=== PATIENT | female | born 1980 | race American Indian/Alaskan Native ===

== ENCOUNTER 2020-10-26 06:13 | Emergency (ER) | payer BC ==
[2020-10-26 06:31] VITALS: BP 143/85
[2020-10-26] MEDS ORDERED: ACETAMINOPHEN 500 MG TAB PO ONE (06:32)
[2020-10-26 07:22] LABS: Basophils # (Auto) 0.2 K/mm3 (0.0-0.1); Basophils % (Auto) 2.2 % (0.0-1.8); Eosinophils # (Auto) 0.1 K/mm3 (0.0-0.4); Eosinophils % (Auto) 1.3 % (0.0-4.3); Hematocrit 37.6 % (30.3-42.9); Hemoglobin 12.5 gm/dl (10.1-14.3); Lymphocytes % (Auto) 22.2 % (13.4-35.0); Mean Corpuscular HGB Conc 33 % (30-34); Mean Corpuscular Volume 83 fl (79-97); Monocytes # (Auto) 0.6 K/mm3 (0.0-0.8); Monocytes % (Auto) 6.3 % (0.0-7.3); Platelet Count 425 K/mm3 (140-440); Red Blood Count 4.54 M/mm3 (3.65-5.03); Red Cell Distribution Width 17.8 % (13.2-15.2)
[2020-10-26] MEDS ORDERED: ACETAMINOPHEN 325 MG TAB PO ONE (07:35)
[2020-10-26] MEDS ORDERED: SODIUM CHLORIDE 0.9% 1000 ML 1,000 ML IV ONE (07:35)
--- NOTE | 2020-10-26 07:35 | Emergency Department Report ---
ED General Adult HPI - General Chief complaint: Vaginal Bleeding Stated complaint: MISCARRIAGE Time Seen by Provider: 10/26/20 07:24 Source: patient Mode of arrival: Ambulatory Limitations: No Limitations - History of Present Illness Initial comments: Patient is a 39-year-old, approximately 9-week , female who presents emergency department for evaluation of vaginal bleeding which began briskly this morning and evolved into clots while in the waiting area of emergency department. Patient believes she miscarried, not complaining of moderate c onstant crampy suprapubic pain. Severity scale (0 -10): 7 - Related Data Allergies Allergy/AdvReac Type Severity Reaction Status Date / Time Sulfa (Sulfonamide Allergy Unknown Verified 10/26/20 07:37 Antibiotics) ED Review of Systems ROS: Stated complaint: MISCARRIAGE Other details as noted in HPI Constitutional: denies: chills, fever Eyes: denies: eye pain, eye discharge, vision change ENT: denies: ear pain, throat pain Respiratory: denies: cough, shortness of breath, wheezing Cardiovascular: denies: chest pain, palpitations Endocrine: no symptoms reported Gastrointestinal: denies: abdominal pain, nausea, diarrhea Genitourinary: denies: urgency, dysuria, discharge Musculoskeletal: denies: back pain, joint swelling, arthralgia Skin: denies: rash, lesions Neurological: denies: headache, weakness, paresthesias Psychiatric: denies: anxiety, depression Hematological/Lymphatic: denies: easy bleeding, easy bruising ED Past Medical Hx - Past Medical History Previous Medical History?: No Additional medical history: Oophorectomy - Social History Smoking Status: Never Smoker Substance Use Type: None ED Physical Exam - General Limitations: No Limitations General appearance: alert, in no apparent distress - Head Head exam: Present: atraumatic, normocephalic - Eye Eye exam: Present: normal appearance - ENT ENT exam: Present: mucous membranes moist - Neck Neck exam: Present: normal inspection - Respiratory Respiratory exam: Present: normal lung sounds bilaterally. Absent: respiratory distress - Cardiovascular Cardiovascular Exam: Present: normal rhythm, tachycardia. Absent: systolic murmur, diastolic murmur, rubs, gallop - GI/Abdominal GI/Abdominal exam: Present: soft, normal bowel sounds - Extremities Exam Extremities exam: Present: normal inspection - Back Exam Back exam: Present: normal inspection - Neurological Exam Neurological exam: Present: alert, oriented X3 - Psychiatric Psychiatric exam: Present: normal affect, normal mood - Skin Skin exam: Present: warm, dry, intact, normal color. Absent: rash ED Course Vital Signs 10/26/20 06:19 Temperature 98.2 F Pulse Rate 110 H Respiratory 14 Rate Blood Pressure 143/85 O2 Sat by Pulse 100 Oximetry - Reevaluation(s) Reevaluation #1: 10/26/20 07:34 Patient initially treated with IV normal saline 1 L x 1 and Tylenol 650 mg p.o. x1. Reevaluation #2: 10/26/20 08:49 Patient reevaluated and in no acute distress, abdomen soft nontender, tachycardia has resolved with IV NS. ED Medical Decision Making - Lab Data Result diagrams: 10/26/20 07:02 10/26/20 07:02 Labs 10/26/20 10/26/20 10/26/20 07:02 07:02 07:02 WBC 9.1 RBC 4.54 Hgb 12.5 Hct 37.6 MCV 83 MCH 28 MCHC 33 RDW 17.8 H Plt Count 425 Lymph % (Auto) 22.2 [place] % (Auto) 6.3 Eos % (Auto) 1.3 Baso % (Auto) 2.2 H Lymph # (Auto) 2.0 [place] # (Auto) 0.6 Eos # (Auto) 0.1 Baso # (Auto) 0.2 H Seg Neutrophils % 68.0 Seg Neutrophils # 6.2 Sodium 136 L Potassium 3.9 Chloride 100.1 Carbon Dioxide 27 Anion Gap 13 BUN 6 L Creatinine 0.8 Estimated GFR > 60 BUN/Creatinine Ratio 8 Glucose 109 H Calcium 9.3 Total Bilirubin 0.30 AST 16 ALT 10 Alkaline Phosphatase 84 Total Protein 8.1 Albumin 4.3 Albumin/Globulin Ratio 1.1 HCG, Quant 3992 H Urine Color Urine Turbidity Urine pH Ur Specific [place] Urine Protein Urine Glucose (UA) Urine Ketones Urine Blood Urine Nitrite Urine Bilirubin Urine Urobilinogen Ur Leukocyte Esterase Urine WBC (Auto) Urine RBC (Auto) U Epithel Cells (Auto) Urine Mucus Urine HCG, Qual Blood Type 10/26/20 10/26/20 07:34 Unknown WBC RBC Hgb Hct MCV MCH MCHC RDW Plt Count Lymph % (Auto) [place] % (Auto) Eos % (Auto) Baso % (Auto) Lymph # (Auto) [place] # (Auto) Eos # (Auto) Baso # (Auto) Seg Neutrophils % Seg Neutrophils # Sodium Potassium Chloride Carbon Dioxide Anion Gap BUN Creatinine Estimated GFR BUN/Creatinine Ratio Glucose Calcium Total Bilirubin AST ALT Alkaline Phosphatase Total Protein Albumin Albumin/Globulin Ratio HCG, Quant Urine Color Red Urine Turbidity Cloudy Urine pH 6.0 Ur Specific [place] 1.026 Urine Protein 100 mg/dl Urine Glucose (UA) 50 Urine Ketones Tr Urine Blood Lg Urine Nitrite Neg Urine Bilirubin Neg Urine Urobilinogen < 2.0 Ur Leukocyte Esterase Neg Urine WBC (Auto) 4.0 Urine RBC (Auto) > 182.0 U Epithel Cells (Auto) 5.0 Urine Mucus 3+ Urine HCG, Qual Positive A Blood Type B POSITIVE Vital Signs 10/26/20 06:19 Temperature 98.2 F Pulse Rate 110 H Respiratory 14 Rate Blood Pressure 143/85 O2 Sat by Pulse 100 Oximetry Critical care attestation.: If time is entered above; I have spent that time in minutes in the direct care of this critically ill patient, excluding procedure time. ED Disposition Clinical Impression: Miscarriage Disposition: DC-01 TO HOME OR SELFCARE Is pt being admited?: No Condition: Stable Instructions: Miscarriage, [id number] Additional Instructions: Follow-up with [facility] in 1 to 2 days for reevaluation and repeat blood work as miscarriage is not definitive without follow-up visit. Return to the emergency department for worsening symptoms.
[2020-10-26 08:02] LABS: Bilirubin,Urine NEG (Negative); Blood,Urine LG (Negative); Color,Urine Red (Yellow); Mucus,Urine 3+ /HPF; Urobilinogen,Urine < 2.0 mg/dL (<2.0)
[2020-10-26 08:04] LABS: HCG Qualitative,Urine Positive (Negative); RBC,Urine > 182.0 /HPF (0.0-6.0)
[2020-10-26 08:14] LABS: Alanine Aminotransferase 10 units/L (7-56); Albumin 4.3 g/dL (3.9-5); BUN/Creatinine Ratio 8; Blood Urea Nitrogen 6 mg/dL (7-17); Calcium 9.3 mg/dL (8.4-10.2); Hemolysis Index 0
--- NOTE | 2020-10-26 08:50 | Ultrasound Report ---
Limited OB Ultrasound HISTORY: Vaginal bleeding, . TECHNIQUE: Grayscale and color imaging performed. COMPARISON: None FINDINGS: Uterus measures 8.8 x 4.6 x 6.0 cm with endometrial echocomplex measuring 2.1 cm. No intrau terine gestational sac is identified. The right ovary is unremarkable in appearance with preserved blood flow. The left ovary is reportedly surgically absent. No pelvic free fluid identified. IMPRESSION: Thickened endometrial echocomplex but no intrauterine gestation identified. Correlate wit h beta hCG level and close ultrasound follow-up. Signer Name: Raymond Gonsalez MD Signed: 10/26/2020 8:45 AM Workstation Name: [id number]
== END 2020-10-26 09:50 | disposition home or self-care (01) ==
LOC: ED 06:13
DX: O03.9 Complete or unspecified spontaneous abortion without complication (principal); Z3A.09 9 weeks gestation of pregnancy
CPT/HCPCS: 36415; 76801; 80053; 81001; 81025; 84702; 85025; 86900; 86901; 96360; 99284; J7030